=== PATIENT | female | born 1995 | race Two or more races ===

== ENCOUNTER 2018-05-29 07:38 | Emergency (ER) | payer SELFPAY ==
[2018-05-29] MEDS ORDERED: IBUPROFEN 800 MG TABLET PO ONE (08:03)
--- NOTE | 2018-05-29 08:41 | RADIOLOGY REPORT (SQ) ---
EXAM DESCRIPTION: ANKLE LEFT COMPLETE COMPLETED DATE/TIME: 05/29/2018 8:06 am REASON FOR STUDY: swelling ,tenderness COMPARISON: None. NUMBER OF VIEWS: Three views. TECHNIQUE: AP, lateral, and oblique radiographic images acquired of the left ankle. LIMITATIONS: None. FINDINGS: MINERALIZATION: Normal. BONES: No acute fracture or dislocation. No worrisome bone lesions. JOINTS: No effusions. SOFT TISSUES: Lateral swelling. OTHER: No other significant finding. IMPRESSION: Soft tissue injury. TECHNICAL DOCUMENTATION: JOB ID: [id number] [employer]- All Rights Reserved Reading location - IP/workstation name: [email or web address]
--- NOTE | 2018-05-29 08:48 | ER Document Report ---
HPI - HPI Patient complains to provider of: Left ankle pain Time Seen by Provider: 05/29/18 07:51 Pain Level: 5 Context: Patient is a 22-year-old female presents to the emergency department after inverting her left ankle. Patient denies swelling in her knee or hip. Patient also denies hitting her head, neck, back or any pain in any. Patient's main complaint is pain along the lateral malleolus of the left ankle. Past medical history: None Medications: None Allergies: None - REPRODUCTIVE Reproductive: DENIES: : - MUSCULOSKELETAL Musculoskeletal: REPORTS: Extremity pain - left ankle Past Medical History - General Information source: Patient - Social History Smoking Status: Never Smoker Chew tobacco use (# tins/day): No Frequency of alcohol use: None Drug Abuse: None Family History: Reviewed & Not Pertinent Patient has suicidal ideation: No Patient has homicidal ideation: No Renal/ Medical History: Denies: Hx Peritoneal Dialysis Past Surgical History: Reports: Hx Cardiac Catheterization Vertical Provider Document - CONSTITUTIONAL Agree With Documented VS: Yes Notes: GENERAL: Alert, interacts well. No acute distress. HEAD: Normocephalic, atraumatic. EYES: Pupils equal, round, and reactive to light. Extraocular movements intact. ENT: Oral mucosa moist, tongue midline. NECK: Full range of motion. Supple. Trachea midline. LUNGS: Clear to auscultation bilaterally, no wheezes, rales, or rhonchi. No respiratory distress. HEART: Regular rate and rhythm. No murmur ABDOMEN: Soft, non-tender. Non-distended. Bowel sounds present in all 4 quadr ants. EXTREMITIES: Moves all 4 extremities spontaneously, normal radial and dorsalis pedis pulses bilaterally. No cyanosis. Minor swelling noted lateral and medial malleolus of the left ankle. Positive CMS all 4 extremities distally. BACK: no cervical, thoracic, lumbar midline tenderness. No saddle anesthesia, normal distal neurovascular exam. NEUROLOGICAL: Alert and oriented x3. Normal speech. cranial nerves II through XII grossly intact PSYCH: Normal affect, normal mood. SKIN: Warm, dry, normal turgor. No rashes or lesions noted. - INFECTION CONTROL TRAVEL OUTSIDE OF THE [place] IN LAST 30 DAYS: No Course - Re-evaluation Re-evalutation: 05/29/18 08:46 Patient's x-ray reveals no signs of fractures. Patient was immobilized with an ankle stirrup and crutches instructions were given. Discussed following up with primary care provider and orthopedics. Patient voices understanding, stable for discharge. - Vital Signs Vital signs: Temp Pulse Resp BP Pulse Ox 98.2 F 114 H 18 111/61 95 05/29/18 07:45 05/29/18 07:45 05/29/18 07:45 05/29/18 07:45 05/29/18 07:45 Discharge - Discharge Clinical Impression: Left ankle injury Qualifiers: Encounter type: initial encounter Qualified Code(s): S99.912A - Unspecified injury of left ankle, initial encounter Condition: Stable Disposition: HOME, SELF-CARE Instructions: Use of Crutches ([facility]), Ankle Stirrup Splint ([facility]), Ice & Elevation ([facility]), Sprained Ankle ([facility]) Additional Instructions: As we discussed you have been seen and treated in the emergency department for a ankle sprain. Your x-rays revealed no signs of fractures. Please make sure you use splint and crutches as needed. Please also make sure you follow-up with your primary care provider in the next 24-48 hours. Please return to the emergency room for any other concerning symptoms. Should you continue with pain after 7 days please follow-up with orthopedics. Phone numbers will be provided in this packet. Forms: Return to Work Referrals: RUBY HEREDIA DO [ACTIVE STAFF] - Follow up as needed
[2018-05-29 09:06] VITALS: BP 113/69
== END 2018-05-29 09:17 | disposition home or self-care (01) ==
LOC: ER 07:38
DX: S99.912A Unspecified injury of left ankle, initial encounter (principal); M25.572 Pain in left ankle and joints of left foot; X50.0XXA Overexertion from strenuous movement or load, initial encounter
CPT/HCPCS: 99283; 73610; L4350

== ENCOUNTER → 2018-11-28 | Outpatient (CLI) | payer SELFPAY ==
--- NOTE | 2018-11-28 15:08 | RADIOLOGY REPORT (SQ) ---
EXAM DESCRIPTION: U/S [id number] TRNABD 1GES W/ODOP COMPLETED DATE/TIME: 11/28/2018 2:21 pm REASON FOR STUDY: Z34.81 ENCOUNTER FOR SUPRVSN OF NORMAL , FIRST TRIMESTER Z34.81 ENCOUNTE R FOR SUPRVSN OF NORMAL , FIRST TRIM COMPARISON: None. TECHNIQUE: Transabdominal static and realtime grayscale images acquired of the pelvis. Additional se lected spectral and color Doppler images recorded. All images stored on PACs. bHCG: Not available. CLINICAL DATES: 13 weeks 1 day. LIMITATIONS: None. FINDINGS: FETUS: Single Living intrauterine . ULTRASOUND EGA: 12 weeks 6 days. ULTRASOUND LYNDON: 06/06/2019 EFW: Not applicable less than 20 weeks. CRL: 6.45 cm. FHR: 153 beats per minute. SURVEY: Too early to assess. AMNIOTIC FLUID: Adequate amount. PLACENTA: Not yet developed due to early gestation. SUBCHORIONIC BLEED: No. SIZE OF BLEED: Not applicable. UTERUS: No masses. No anomalies. CERVICAL LENGTH: 5.3 cm. Closed. RIGHT ADNEXA: Ovary not identified due to poor acoustical window. No adnexal free fluid. No adnexal masses. LEFT ADNEXA: Ovary not identified due to poor acoustical window. No adnexal free fluid. No adnexal masses. FREE FLUID: None. OTHER: No other significant finding. IMPRESSION: LIVING INTRAUTERINE . EGA 12 WEEKS 6 DAYS. Trimester of : First trimester - 0 to 13 weeks. TECHNICAL DOCUMENTATION: JOB ID: [id number] [email or web address]- All Rights Reserved Reading location - IP/workstation name: [email or web address]
== END ==
LOC: RAD 13:05
PROVIDERS: ATTEND Midwife
DX: Z34.81 Encounter for supervision of other normal pregnancy, first trimester (principal)
CPT/HCPCS: 76801